=== PATIENT | male | born 1970 | race Caucasian/White ===

== ENCOUNTER 2016-10-22 14:40 | Emergency (ER) | payer BC ==
[2016-10-22 15:03] VITALS: BP 128/88
[2016-10-22] MEDS ORDERED: Lidocaine 1% 50 ML MDV INJECT ONE (15:47)
[2016-10-22] MEDS ORDERED: Cephalexin 500 MG Cap PO ONE (17:55)
[2016-10-22] MEDS ORDERED: Diphtheria,Pertussis(Acell),Tetanus Vaccine 0.5 ML SDV IM ONE (18:09)
--- NOTE | 2016-10-22 18:09 | EDM.PDOC ---
ED HPI GENERAL MEDICAL PROBLEM - General Chief Complaint: Laceration Stated Complaint: FACIAL INJURIES Time Seen by Provider: 10/22/16 15:40 Source of Information: Reports: Patient History Limitations: Reports: No Limitations - History of Present Illness INITIAL COMMENTS - FREE TEXT/NARRATIVE: 46-year-old man presents for evaluation and treatment of injuries sustained from a fall. Reportedly the fall happened around 6 AM this morning. 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 He states he fell onto some gravel hitting his nose and lip. He states now presents to the ER as he was unaware of how serious the laceration was. He is currently reporting abrasions to the nose and a laceration to the right medial maxilla. He did not lose consciousness. No loose or missing teeth. Reports that his upper lip is sore. Since incident he denies any headaches, loss of consciousness, vision changes, nausea, vomiting or neck pain. Patient is unsure of his last tetanus. Onset: Today Upper Lip Pain Score (Numeric/FACES): 1 - Related Data Allergies Allergy/AdvReac Type Severity Reaction Status Date / Time No Known Allergies Allergy Verified 10/22/16 15:02 Home Meds: Home Meds Cephalexin 500 mg PO BID #13 capsule 10/22/16 [Rx] Past Medical History - Past Health History Medical/Surgical History: Denies Medical/Surgical History Social & Family History - Family History Family Medical History: Noncontributory - Tobacco Use Smoking Status *Q: Never Smoker Second Hand Smoke Exposure: No - Alcohol Use Days Per Week of Alcohol Use: 0 - Recreational Drug Use Recreational Drug Use: No ED ROS GENERAL - Review of Systems Review Of Systems: See Below HEENT: Reports: Other (abrasions to the nose, laceration to the upper lip; no loose or missing teeth). Denies: Vision Change GI/Abdominal: Denies: Nausea, Vomiting Skin: Reports: Wound (nose and upper lip) Neurological: Denies: Headache, Syncope ED EXAM, SKIN/RASH Exam: See Below Exam Limited By: No Limitations General Appearance: Alert, WD/WN, No Apparent Distress Ears: Normal External Exam Nose: Other (multiple abrasions to the nose). No: Nasal Tenderness, Nasal Swelling, Nasal Drainage Throat/Mouth: Normal Lips, Normal Teeth, Normal Voice, No Airway Compromise, Other (bruise to the inner upper lip; 2cm subcutaneous cresent shaped laceration to the upper lip just lateral to the philtrum inferior to the right nare) Head: No: Facial Tenderness Neck: Normal Inspection Respiratory/Chest: No Respiratory Distress, Lungs Clear, Normal Breath Sounds Cardiovascular: Normal Peripheral Pulses, Regular Rate, Rhythm, No Murmur Neurological: Alert, Oriented, Normal Cognition Psychiatric: Normal Affect, Normal Mood Skin: Warm, Dry, Normal Color Location, Skin: Face Characteristics: Linear ED SKIN PROCEDURES - Laceration/Wound Repair Right Medial Face Lac/Wound length In cm: 2 Appearance: Subcutaneous, Linear, Moderately Contaminated Distal NVT: Neuro & Vascular Intact, No Tendon Injury Anesthetic Type: Local Local Anesthesia - Lidocaine (Xylocaine): 1% Plain Local Anesthetic Volume: 3cc Skin Prep: Chlorhexidine (Hibiciens), Saline, Sterile Drape Exploration/Debridement/Repair: Wound Explored, No Foreign Material Found Closed with: Sutures Suture Size: other (6-0) # of Sutures: 8 Suture Type: Nylon, Interrupted, Simple Sterile Dressing Applied: Nurse Tetanus Status Addressed: Yes Complications: No Course - Vital Signs Last Recorded V/S: Last Vital Signs Temp 36.8 C 10/22/16 14:58 Pulse 89 10/22/16 14:58 Resp 16 10/22/16 14:58 BP 128/88 10/22/16 14:58 Pulse Ox 95 10/22/16 14:58 - Orders/Labs/Meds Orders: Active Orders 24 hr Category Date Time Status Vaccines to be Administered [RC] PER UNIT ROUTINE Care 10/22/16 18:09 Active Meds: Medications Discontinued Medications Generic Name Dose Route Start Last Admin Trade Name Leola PRN Reason Stop Dose Admin Cephalexin 500 mg 10/22/16 17:55 10/22/16 18:13 Keflex PO 10/22/16 17:56 500 mg ONETIME ONE Administration Diphtheria/Tetanus/Acell Pertussis 0.5 ml 10/22/16 18:09 10/22/16 18:16 Adacel IM 10/22/16 18:10 0.5 ml .ONCE ONE Administration Lidocaine HCl 50 ml 10/22/16 15:47 10/22/16 16:47 Xylocaine 1% INJECT 10/22/16 15:48 50 ml ONETIME ONE Administration Departure - Departure Time of Disposition: 17:55 Disposition: Home, Self-Care 01 Condition: Good Clinical Impression: Laceration - Discharge Information Prescriptions: Cephalexin 500 mg PO BID #13 capsule Instructions: Laceration Care, Adult, [id number] Referrals: PCP,None [Primary Care Provider] - Radha Todd PA [Physician [employer] Supervisor] - Forms: ED Department Discharge Additional Instructions: Wash the area with gentle soap and water twice a day. Antibacterial ointment to the nose abrasions twice a day. Have the sutures removed in 7 days. The [facility] clinic located on the side of the hospital is open 8 AM to 5 PM Sunday through Sunday and will remove the sutures for free. Please call [phone] to schedule with a provider there. Recommend Radha Todd. [id number] Tylenol or Motrin as needed for pain relief. Monitor for signs of infection such as increased swelling, pus or redness. Present to the clinic or the ER should these develop. Please return to the ER if your symptoms change or worsen. - My Orders Last 24 Hours: My Active Orders 10/22/16 18:09 Vaccines to be Administered [RC] PER UNIT ROUTINE - Assessment/Plan Last 24 Hours: My Active Orders 10/22/16 18:09 Vaccines to be Administered [RC] PER UNIT ROUTINE
== END 2016-10-22 18:39 | disposition home or self-care (01) ==
LOC: JD.ED 14:40
DX: S01.511A Laceration without foreign body of lip, initial encounter (principal); V89.9XXA Person injured in unspecified vehicle accident, initial encounter; Z23 Encounter for immunization
CPT/HCPCS: 12011; 90471; 90715; 99283; A9270